=== PATIENT | female | born 1985 | race Caucasian/White ===

== ENCOUNTER 2020-12-23 02:08 | Day surgery (SDC) | payer BC, SELFPAY ==
[2020-12-17 13:40] VITALS: BMI 25.0
--- NOTE | 2020-12-23 07:27 | WPDANESEPPF ---
Anes - Initial Pre Proc Eval Procedure: Operation Date: 12/23/20 09:15 Proposed Procedures p Colonoscopy - Saul Elizabeth MD Date/Time: 12/23/20 07:27 Surgeon: Saul Elizabeth MD Pre Op Diagnosis: diarrhea R19.7 Patient Data Age: 35 Gender: F Height: 1.6 m Weight: 64 kg Allergies Allergy/AdvReac Type Severity Reaction Status Date / Time emmanuel Allergy Mild Itching Verified 12/23/20 08:43 Home Medications Medication Instructions Recorded Confirmed Type cetirizine 10 mg capsule 10 mg PO DAILY 06/19/20 12/17/20 History multivitamin 1 tablet PO DAILY 06/19/20 12/17/20 History azelastine 137 mcg (0.1 %) nasal 1 spray INTRANASAL Q12H PRN #30 ml 08/27/20 12/17/20 Rx spray aerosol propranolol 20 mg tablet 20 mg PO .QD PRN #90 tablet 10/07/20 12/17/20 Rx sertraline 25 mg tablet 37.5 mg PO DAILY #90 tablet 10/08/20 12/17/20 Rx Patient hx anesthesia problems: none Family hx anesthesia problems: none PMFSH Past Medical History Medical History Allergy-induced asthma Anxiety Asthma Diarrhea Environmental allergies History of mammography, screening Baseline screening 10/2018 Smoker Surgical History Surgical History History of wisdom tooth extraction Family History Family History Father Diabetes mellitus Hypertension Mother Asthma Social History Social History Smoking packs per day: 0.75 Smoking cigarettes per day: 15.0 Years smoked: 15 Smoking pack-years: 11.25 Smoking status: Light tobacco smoker Tobacco type: cigarettes Alcohol intake: current Drinks per week: 5 Substance use: never Substance use type: does not use Living arrangements: with family Additional occupation/education comments: [employer] Gender identity (if verbalized by the patient): Female Sexual Orientation (if Verbalized by the Patient): Straight or Heterosexual Spiritual care concerns: No Agree to blood products: Yes Anes - Eval Final PreProcedure Day of Procedure 12/23/20 07:27 Patient weight: overweight Heart: regular rate and rhythm Lungs: clear to auscultation and normal air movement Airway: Mallampati scale class II Neurological: alert and oriented Last oral intake: >/= 8 hours ASA classification: II Emergent: no Anesthetic plan: proceed Anesthesia type and monitoring: general GIVS Informed Consent: The patient's anesthetic plan and its attendant risks and benefits were discussed with the patient/family/POA. Questions were solicited and answers provided to the satisfaction of the patient/family/POA.
[2020-12-23 08:44] VITALS: BP 115/77; PULSE 55; RESP 18; TEMP 35.8; O2SAT 100; BMI 24.5
[2020-12-23] MEDS: LACTATED RINGERS 1,000 ML 150 ML IV CONT (08:53)
--- NOTE | 2020-12-23 09:17 | WPDGICN ---
Assessment and Plan Assessment and plan (1) Diarrhea: Code(s): R19.7 - Diarrhea, unspecified Status: Acute Assessment and Plan: Patient reports a change in bowel movements over the last 2 months be. She reports that it changed abruptly on 10/14/2020. Laboratory workup to date has been noncontributory. Somewhat suspicious for irritable bowel syndrome colonoscopy to be performed today. Would recommend high fiber supplementation further recommendations after this trial. GI Consult Note Consult date/time: 12/23/20 09:17 HPI: Elizabet Bateman is a 35 year old female Presents for colonoscopy. Patient reports a change in bowel habits that began on October 14, 2020. She states her usual bowel habits of up to 3 a day abruptly changes so that now she has at least 4 bowel movements a day up to 9 or 10 a day. She states stools are soft. She denies any bleeding. She has had no abdominal pain. This been persistent over the last 2 months. Patient denies any recent travel. No one else in the family has been ill. She has no ill pets. She has had no change in medications. She has recently had stool cultures that were negative. Laboratory testing for celiac sprue etc. has been negative. She has tried no specific medications to alleviate her loose stools. She is referred today for colonoscopy. Review of Systems Review of Systems: All systems reviewed & are unremarkable except as noted in HPI and below PMFSH Past Medical History Medical History Allergy-induced asthma Anxiety Asthma Diarrhea Environmental allergies History of mammography, screening Baseline screening 10/2018 Smoker Surgical History Surgical History History of wisdom tooth extraction Family History Family History Father Diabetes mellitus Hypertension Mother Asthma Social History Social History Smoking packs per day: 0.75 Smoking cigarettes per day: 15.0 Years smoked: 15 Smoking pack-years: 11.25 Smoking status: Light tobacco smoker Tobacco type: cigarettes Alcohol intake: current Drinks per week: 5 Substance use: never Substance use type: does not use Living arrangements: with family Additional occupation/education comments: [employer] Gender identity (if verbalized by the patient): Female Sexual Orientation (if Verbalized by the Patient): Straight or Heterosexual Spiritual care concerns: No Agree to blood products: Yes Meds Home Medications and Allergies Home Medications Medication Instructions Recorded Confirmed Type cetirizine 10 mg capsule 10 mg PO DAILY 06/19/20 12/17/20 History multivitamin 1 tablet PO DAILY 06/19/20 12/17/20 History azelastine 137 mcg (0.1 %) nasal 1 spray INTRANASAL Q12H PRN #30 ml 08/27/20 12/17/20 Rx spray aerosol propranolol 20 mg tablet 20 mg PO .QD PRN #90 tablet 10/07/20 12/17/20 Rx sertraline 25 mg tablet 37.5 mg PO DAILY #90 tablet 10/08/20 12/17/20 Rx Allergies Allergy/AdvReac Type Severity Reaction Status Date / Time emmanuel Allergy Mild Itching Verified 12/23/20 08:43 Vital Signs Vital Signs - 24 hr 12/23/20 08:44 Temperature 96.4 F L Pulse Rate 55 L Respiratory Rate 18 Blood Pressure 115/77 Pulse Oximetry 100 Exam Narrative: physical exam reveals patient to be alert. Vital signs stable. HEENT exam unremarkable. Patient is anicteric. Lungs are clear to auscultation and percussion. Heart is without murmur or extra sounds. Abdominal exam bowel sounds are present soft nontender with no organomegaly. Digital external rectal exam is normal.
[2020-12-23 09:50] VITALS: BP 95/60; PULSE 45; RESP 15; O2SAT 100
[2020-12-23 10:00] VITALS: BP 93/72; PULSE 45; RESP 13; O2SAT 100
[2020-12-23 10:10] VITALS: BP 101/74; PULSE 45; RESP 13; O2SAT 100
== END 2020-12-23 10:22 | disposition home or self-care (01) ==
PROVIDERS: PCP Family Medicine; Visit Provider Internal Medicine Gastroenterology
PROC: 0DJD8ZZ Inspection of Lower Intestinal Tract, Via Natural or Artificial Opening Endoscopic (ICD-10-PCS; CPT 45378; principal; 2020-12-23 09:15)
DX: R19.4 Change in bowel habit (principal); R19.7 Diarrhea, unspecified; K64.8 Other hemorrhoids; F41.9 Anxiety disorder, unspecified; J45.909 Unspecified asthma, uncomplicated; Z87.891 Personal history of nicotine dependence
CPT/HCPCS: 45380; 88305; J2704; J7120